=== PATIENT | female | born 1945 | race Caucasian/White ===

== ENCOUNTER → 2018-04-07 | Outpatient (CLI) | payer MEDICARE, BC ==
[~2018-04-07] MED LIST: ALBU8.5H5 INH; ARIP10TA33 PO; DEXL60CA2 PO; DULO30CA2 PO; EPIN1AMP IM; ESTR1POW13 VG; ESTR1TAB15 PO; FLUC200T4 PO; HYDR-3152 PO; LEVO150T5 PO; LIDOCAINE-MPF 1%, 5ML ONE; METH20CP PO; PARI1CAP PO; POTA10TA11 PO; ROPivacaine/PF 0.2%, 10 ML ONE; SENN8.6T64 PO; TRIAMCINOLONE ACETONIDE 40 MG/ML, 1ML ONE
== END | disposition home or self-care (01) ==
LOC: RAD 04-01 13:23
PROVIDERS: ATTEND Orthopaedic Surgery
DX: M19.072 Primary osteoarthritis, left ankle and foot (principal)
CPT/HCPCS: 20605; 77002; J2795; J3301

== ENCOUNTER → 2018-07-10 | Outpatient (CLI) | payer MEDICARE, BC ==
[~2018-07-10] MED LIST changes: -LIDOCAINE-MPF 1%, 5ML ONE; -ROPivacaine/PF 0.2%, 10 ML ONE; -TRIAMCINOLONE ACETONIDE 40 MG/ML, 1ML ONE
== END | disposition home or self-care (01) ==
LOC: RAD 14:36
PROVIDERS: ATTEND Orthopaedic Surgery
DX: M19.072 Primary osteoarthritis, left ankle and foot (principal); M65.872 Other synovitis and tenosynovitis, left ankle and foot; R60.0 Localized edema

== ENCOUNTER 2018-07-24 12:53 | Outpatient (CLI) | payer MEDICARE, BC ==
[2018-07-24] MEDS ORDERED: ROPivacaine/PF 0.2%, 10 ML ONE (13:07)
[2018-07-24] MEDS ORDERED: LIDOCAINE 1%, 20ML ONE (13:07)
[2018-07-24] MEDS ORDERED: TRIAMCINOLONE ACETONIDE 40 MG/ML, 1ML ONE (13:07)
[2018-07-24] MEDS ORDERED: OMNIPAQUE 300 MG/ML, 10ML VIAL ONE (14:22)
== END 2018-07-24 23:59 | disposition home or self-care (01) ==
LOC: RAD 12:53
PROVIDERS: ATTEND Orthopaedic Surgery
DX: M19.072 Primary osteoarthritis, left ankle and foot (principal)
CPT/HCPCS: 20605; 77002; J2795; J3301; J3490; Q9967

== ENCOUNTER 2019-01-12 13:51 | Outpatient (CLI) | payer MEDICARE, BC ==
[2019-01-12] MEDS ORDERED: ROPivacaine/PF 0.2%, 10 ML ONE (14:06)
[2019-01-12] MEDS ORDERED: TRIAMCINOLONE ACETONIDE 40 MG/ML, 1ML ONE ×3 (14:06→14:39)
[2019-01-12] MEDS ORDERED: LIDOCAINE-MPF 1%, 5ML ONE ×2 (14:06→14:35)
[2019-01-12] MEDS ORDERED: LIDOCAINE 1%, 20ML ONE (14:34)
== END 2019-01-12 23:59 | disposition home or self-care (01) ==
LOC: RAD 13:51
PROVIDERS: ATTEND Orthopaedic Surgery
DX: M19.072 Primary osteoarthritis, left ankle and foot (principal)
CPT/HCPCS: 20600; 77002; J2795; J3301